=== PATIENT | female | born 1955 | race Caucasian/White ===

== ENCOUNTER → 2018-05-02 | Outpatient (CLI) | payer OTHER ==
--- NOTE | 2018-05-06 08:06 | MM ---
Reason for exam: screening (asymptomatic). Last mammogram was performed 2 years and 1 month ago. History: Patient is postmenopausal. Benign left mammotome panel of the left breast, December 01, 2008. Benign stereotactic core biopsy of the left breast, July 16, 2003. Benign stereotactic core biopsy of the right breast, July 16, 2003. Benign stereotactic core biopsy of the right breast, July 16, 2003. Benign core biopsy of the left breast. 3 benign core biopsies of the right breast. Took hormonal contraceptives for 3 years beginning at age 19. Took estrogen for 2 years beginning at age 39. Physical Findings: A clinical breast exam by your physician is recommended on an annual basis and results should be correlated with mammographic findings. MG Screening Mammo w CAD Bilateral CC and MLO view(s) were taken. Prior study comparison: April 16, 2016, bilateral MG screening mammo w CAD. August 24, 2014, bilateral MG screening mammo w CAD. July 09, 2013, bilateral digital screening mammo w/CAD. There are scattered fibroglandular densities. Previous mammotome biopsy in the right breast x 2 and left breast x 2. There is chronic nodularity in the right breast. Focal asymmetry left breast, stable. Benign secretory calcifications on both sides. No significant changes when compared with prior studies. ASSESSMENT: Benign, BI-RAD 2 RECOMMENDATION: Routine screening mammogram of both breasts in 1 year.
== END | disposition home or self-care (01) ==
LOC: RADMAMWWP 10:45
PROVIDERS: ATTEND Family Medicine
DX: Z12.31 Encounter for screening mammogram for malignant neoplasm of breast (principal); Z68.36 Body mass index [BMI] 36.0-36.9, adult
CPT/HCPCS: 77067

== ENCOUNTER → 2020-07-13 | Outpatient (CLI) | payer MEDICARE, BC ==
[2020-07-14 02:08] LABS: Protein, Total 7.3 g/dL (6.2-8.2)
[2020-07-14 02:21] LABS: T4, Free (Free Thyroxine) 1.2 ng/dL (0.80-1.80)
== END | disposition home or self-care (01) ==
LOC: LABWHC1 14:42
PROVIDERS: ATTEND Psychiatry & Neurology Neurology
DX: G62.9 Polyneuropathy, unspecified (principal); R53.1 Weakness; R27.0 Ataxia, unspecified; M13.80 Other specified arthritis, unspecified site; M79.10 Myalgia, unspecified site
CPT/HCPCS: 36415; 82306; 82550; 82607; 82747; 84165; 84207; 84439; 84443; 85652; 86038; 86334; 86431; 86618

== ENCOUNTER 2020-07-29 07:19 | Day surgery (SDC) | payer MEDICARE, BC ==
[2020-07-21 13:57] VITALS: BMI 30.4
--- NOTE | 2020-07-28 14:57 | P.HPOB ---
History of Present Illness H&P Date: 07/28/20 Chief Complaint: Postmenopausal bleeding, endometrial thickening This is a 65 y.o. female, 1, para 1, who presents for dilatation and curettage with hysteroscopy due to postmenopausal bleeding. She had 1 day of spotting about a month ago. She also had some pelvic pain at the same time. Ultrasound showed uterus measuring 8.4 x 4 x 4.5 cm with endometrial thickness of 1.2 cm. OB Hx: . History of 1 vaginal delivery. Mother Baby Rn Hx: Not currently sexually active. No history of STDs. Menopause age 38. Social Hx: . Retired. Review of Systems Constitutional: Denies chills, Denies fever Eyes: denies blurred vision, denies pain Ears, nose, mouth and throat: Denies headache, Denies sore throat Cardiovascular: Denies chest pain, Denies shortness of breath Respiratory: Denies cough Gastrointestinal: Denies abdominal pain, Denies diarrhea, Denies nausea, Denies vomiting Genitourinary: Reports abnormal vaginal bleeding, Reports pelvic pain Menstruation: Reports postmenopausal Musculoskeletal: Reports myalgias Integumentary: Denies pruritus, Denies rash Neurological: Denies numbness, Denies weakness Past Medical History Past Medical History: Asthma, Diabetes Mellitus, Hypertension History of Any Multi-Drug Resistant Organisms: None Reported Past Surgical History: Orthopedic Surgery, Tonsillectomy Additional Past Surgical History / Comment(s): LEFT CARPAL TUNNEL RELEASE , RIGHT CARPAL TUNNEL RELEASE X2 , Past Anesthesia/Blood Transfusion Reactions: Motion Sickness Past Psychological History: Depression Smoking Status: Never smoker Past Alcohol Use History: Rare Past Drug Use History: None Reported - Past Family History Father Family Medical History: Cancer Additional Family Medical History / Comment(s): COLON CANCER Medications and Allergies Home Medications Medication Instructions Recorded Confirmed Type Albuterol Sulfate [Ventolin HFA] 1 - 2 puff INHALATION Q6H PRN 07/21/20 07/21/20 History Cholecalciferol [Vitamin D3 (25 5,000 unit PO DAILY 07/21/20 07/21/20 History Mcg = 1000 Iu)] DULoxetine HCL [Cymbalta] 30 mg PO HS 07/21/20 07/21/20 History Echinacea 850 mg PO DAILY PRN 07/21/20 07/21/20 History Fluticasone Nasal [place] [Flonase 1 - 2 spray EA NOSTRIL DAILY 07/21/20 07/21/20 History Nasal [place]] Glucos Sul 2Kcl/MSM/Chond/C/Mn 1 each PO DAILY 07/21/20 07/21/20 History [Glucosamine Chondroitin Cap] Ibuprofen [Motrin] 800 mg PO Q8H PRN 07/21/20 07/21/20 History Krill Oil 500 mg PO DAILY 07/21/20 07/21/20 History Losartan [Cozaar] 50 mg PO DAILY 07/21/20 07/21/20 History Montelukast Sodium [Singulair] 10 mg PO HS 07/21/20 07/21/20 History Naltrexone 3mg 3 mg PO DAILY 07/21/20 History Dodson-3 Fatty Acids [Dodson-3] 1,000 mg PO DAILY 07/21/20 07/21/20 History Propylene Glycol/Peg 400/Pf 1 dropper BOTH EYES BID PRN 07/21/20 07/21/20 History [Systane 0.3-0.4% Eye Drops] Sodium Chloride 5% Ophth Oint 1 applic BOTH EYES DAILY PRN 07/21/20 07/21/20 History [Harry 128] Turmeric Root Extract [Turmeric] 500 mg PO DAILY 07/21/20 07/21/20 History metFORMIN HCL [Glucophage] 500 mg PO BID 07/21/20 07/21/20 History traZODone HCL [Desyrel] 50 mg PO HS 07/21/20 07/21/20 History Allergies Allergy/AdvReac Type Severity Reaction Status Date / Time Ttsouhz-Bbd-Mgl Reductase Allergy SEVERE Verified 07/29/20 07:48 Inhibitor JOINT PAIN Exam Osteopathic Statement: *. No significant issues noted on an osteopathic structural exam other than those noted in the History and Physical/Consult. Gen: well developed, well nourished female in no acute distress HEENT: within normal limits. Heart: regular rate and rhythm Lungs: clear to auscultation bilaterally Abdomen: soft, non-tender Pelvic: deferred to OR Extremities: Neg. Katja's Assessment and Plan (1) Postmenopausal bleeding Current Visit: No Status: Acute Code(s): N95.0 - POSTMENOPAUSAL BLEEDING SNOMED Code(s): 73739270 (2) Endometrial thickening on ultrasound Current Visit: No Status: Acute Code(s): R93.89 - ABNORMAL FINDINGS ON DX IMAGING OF OTH BODY STRUCTURES SNOMED Code(s): 536061745 Plan: Proceed with dilatation and curettage with hysteroscopy. Medical clearance obtained from Dr. Joseluis Bell. I have discussed the risks, benefits, and alternative therapies for the above- mentioned procedure and for both sedation/anesthesia as well as necessary blood products administration, if indicated, as they pertain to this patient. The patient has indicated her understanding and acceptance of the risks and procedures discussed.
[~2020-07-29 07:19] MED LIST: DEXAMETHASONE SOD PHOSPHATE 10 MG/ML 1 ML VIAL IV ONE; HYDROmorphone 0.5 MG/0.5 ML SYRINGE IVP PRN; LACTATED RINGERS 1,000 ML IV SCH; LIDOCAINE 1% (10MG/ML) FOR IV START INTRADERMA PRN; ONDANSETRON 4 MG/2 ML VIAL IVP ONE; Pre Op ABX Message 1 EACH MISC MISCELLANE ONE; SCOPOLAMINE 1.5MG/72HR PATCH TRANSDERM ONE
[2020-07-29 08:02] LABS: Glucose,Whole Blood 126 mg/dL (75-99)
[2020-07-29] MEDS ORDERED: SUCCINYLCHOLINE CHLORIDE 100 MG/5 ML SYR IV ONE (08:20)
[2020-07-29] MEDS ORDERED: MIDAZOLAM 2 MG/2 ML VIAL ONE (08:20)
[2020-07-29] MEDS ORDERED: LIDOCAINE 1% INJ 10MG/ML (20 ML MDV) ONE (08:20)
[2020-07-29] MEDS ORDERED: KETOROLAC 15 MG/ML 1 ML VIAL ONE (08:20)
[2020-07-29] MEDS ORDERED: fentaNYL (PF) 50 MCG/ML 2 ML AMP ONE (08:20)
[2020-07-29] MEDS ORDERED: PROPOFOL 10 MG/ML 20 ML VIAL IV ONE (08:20)
--- NOTE | 2020-07-29 08:52 | P.OP ---
Date of Procedure: 07/29/20 Preoperative Diagnosis: Postmenopausal bleeding Endometrial thickening Postoperative Diagnosis: Same Procedure(s) Performed: Dilation and curettage with hysteroscopy Anesthesia: ADRIANA Surgeon: Latisha Fishman Estimated Blood Loss (ml): 5 Pathology: other (Endometrial curettings) Condition: stable Disposition: same day Indications for Procedure: This is a 65 y.o. female, 1, para 1, who presents for dilatation and curettage with hysteroscopy due to postmenopausal bleeding. She had 1 day of spotting about a month ago. She also had some pelvic pain at the same time. Ultrasound showed uterus measuring 8.4 x 4 x 4.5 cm with endometrial thickness of 1.2 cm. Operative Findings: Uterus is mid position, sounded to 9 cm. Upon hysteroscopy a large endometrial polyp is noted. Background endometrium appears very atrophic. Both tubal ostia are visualized. Of note she did have a grade 3 rectocele, grade 2 cystocele, and grade 2 uterine prolapse. There was also a small vaginal skin tag on the anterior vaginal wall. Description of Procedure: The patient is taken to the operating room she is placed in the dorsal lithotomy position. She is prepped and draped in the normal sterile fashion. Her bladder is drained with a catheter and then removed. Examination is performed under anesthesia. The above noted findings are made. Uterus is palpated and a mid position slightly enlarged, with no adnexal masses palpated. Next a weighted speculum was placed in the patient's vagina and a right angle retractor was used to visualize the cervix. The anterior lip of the cervix is grasped with a single-tooth tenaculum. Uterus is sounded to 9 cm. The cervix is then gently dilated with Park dilators. A stress The is performed using normal saline. The above noted findings are made and pictures are taken. Next the cervix is gently dilated further and a polyp forceps was introduced. A very large endometrial polyp approximately 4-5 cm long is removed. Next a medium-size sharp curet was introduced and sharp curettage was performed until a gritty texture was noted. Minimal further tissue was obtained. Next the single-tooth tenaculum is removed. No bleeding is noted. All instruments are removed from the vagina. All sponge counts are correct. The patient is then taken to recovery room in stable condition.
[2020-07-29 09:14] VITALS: TEMP 97.7
[2020-07-29 10:13] VITALS: PULSE 73; RESP 16
[2020-07-29 11:07] VITALS: BP 172/72
== END 2020-07-29 11:35 | disposition home or self-care (01) ==
LOC: OR 07:19
PROVIDERS: ATTEND Obstetrics & Gynecology
DX: N84.0 Polyp of corpus uteri (principal); N81.2 Incomplete uterovaginal prolapse; L91.8 Other hypertrophic disorders of the skin; N95.0 Postmenopausal bleeding; R93.89 Abnormal findings on diagnostic imaging of other specified body structures; E11.9 Type 2 diabetes mellitus without complications; J45.909 Unspecified asthma, uncomplicated; I10 Essential (primary) hypertension; F32.9 Major depressive disorder, single episode, unspecified; Z88.8 Allergy status to other drugs, medicaments and biological substances; Z98.890 Other specified postprocedural states; Z90.89 Acquired absence of other organs; Z86.69 Personal history of other diseases of the nervous system and sense organs; Z87.898 Personal history of other specified conditions; Z79.899 Other long term (current) drug therapy; Z79.84 Long term (current) use of oral hypoglycemic drugs; Z80.0 Family history of malignant neoplasm of digestive organs
CPT/HCPCS: 88305; 58558; J2250; J2001; J3010; J1885; J0330; J2704

== ENCOUNTER → 2020-08-06 | Outpatient (CLI) | payer MEDICARE, BC ==
--- NOTE | 2020-08-06 12:02 | MR ---
"EXAMINATION TYPE: MR cervical spine wo con DATE OF EXAM: 08/06/2020 COMPARISON: None HISTORY: Pain, Numbness TECHNIQUE: Multiplanar, multisequence images of the cervical spine were acquired. C2-C3: Disc desiccation and left paracentral disc bulging. Mild effacement of thecal sac. There is fa cet arthropathy. Mild left-sided foraminal encroachment. No Canal stenosis. C3-C4: Central disc herniation causing severe canal stenosis and spinal cord compression. Facet arthr opathy and uncovertebral joint hypertrophy contribute to severe bilateral foraminal encroachment. Sug gestion of abnormal signal in the spinal cord suggestive of compressive myelitis. Anterolisthesis of C3 relative to C4 approximately 3 mm. Report called to referring clinician. C4-C5: Severe degenerative disc disease and facet arthropathy greater on the left. Bilateral uncovert ebral joint hypertrophy greater on the left moderate right and severe left foraminal encroachment. Di sc bulging capped by spur results in moderate compression thecal sac. Mild canal stenosis. C5-C6: Severe degenerative disc disease with facet arthropathy and diffuse disc bulging. Moderate com pression of the thecal sac. Moderate to severe left foraminal encroachment and moderate right foramin al encroachment. Mild canal stenosis. C6-C7: Severe degenerative disc disease with broad-based disc herniation. Encroaches upon the anterio r margin the spinal cord. Moderate to severe bilateral foraminal encroachment with posterior spondylo sis and uncovertebral joint hypertrophy. C7-T1: Degenerative disc disease but no canal stenosis. No foraminal encroachment. Craniocervical junction maintained. As noted above there is abnormal signal at C3-4 within the spinal cord is suggestive of compressive myelitis. Additionally there appears to be a rounded mass posterio r to the upper margin of the odontoid measuring 6 mm. IMPRESSION: 1. Severe spinal cord compression due to central disc herniation at C3-C4 with severe bilateral moiz inal encroachment. Abnormal signal in the spinal cord likely related to compressive myelitis. 2. Multilevel degenerative disc disease with multiple additional areas of disc protrusion, hypertroph ic change and evidence of canal stenosis area 3. There is a 6 mm mass just posterior to the upper margin the odontoid possibly extradural and possi simone related to a small meningioma. Recommend MRI of the brain for further assessment. A [place] level critical message alert has been initiated for Jaden Morejon DO via the [employer] 0 | Critical Results System on 08/06/2020 11:57 AM. This message alert has been sent to Jaden andrade DO via the preferences provided by the clinician for the receipt of Radiology Critical Findings. Teresita essage ID [id number]."
== END | disposition home or self-care (01) ==
LOC: RADMRIMAIN 11:13
PROVIDERS: ATTEND Psychiatry & Neurology Neurology
DX: M48.02 Spinal stenosis, cervical region (principal); M50.21 Other cervical disc displacement, high cervical region; M50.30 Other cervical disc degeneration, unspecified cervical region
CPT/HCPCS: 72141

== ENCOUNTER → 2020-08-15 | Outpatient (CLI) | payer MEDICARE, BC ==
[2020-08-15 14:28] LABS: Basophils # (A) 0.1 k/uL (0-0.2); Basophils % (A) 1 %; Eosinophils # (A) 0.2 k/uL (0-0.7); Eosinophils % (A) 2 %; HCT 41.3 % (34.0-46.0); HGB 13.6 gm/dL (11.4-16.0); Lymphocytes # (A) 3.5 k/uL (1.0-4.8); Lymphocytes % (A) 33 %; MCH 30.5 pg (25.0-35.0); MCV 92.3 fL (80.0-100.0); Mean Platelet Volume 7.1; Monocytes # (A) 0.7 k/uL (0-1.0); Monocytes % (A) 7 %; Neutrophils % (A) 56 %; Platelet Count 253 k/uL (150-450); RBC 4.47 m/uL (3.80-5.40); RDW 12.6 % (11.5-15.5); WBC 10.7 k/uL (3.8-10.6)
[2020-08-15 14:32] LABS: Appearance,Urine Clear (Clear); Bacteria,Urine Rare /hpf; Bilirubin,Urine Negative (Negative); Blood,Urine Negative (Negative); Color,Urine Yellow; Glucose,Urine (UA) Negative (Negative); Ketones,Urine Negative (Negative); Leukocyte Esterase,Urine Large (Negative); Mucus,Urine Few /hpf; Nitrite,Urine Negative (Negative); Protein,Urine Negative (Negative); Squamous Epithelial Cell,Urine 1 /hpf (0-4); Urobilinogen,Urine <2.0 mg/dL (<2.0); WBC,Urine 9 /hpf (0-5)
[2020-08-15 14:33] LABS: Partial Thromboplastin Time 26.4 sec (22.0-30.0); Prothrombin Time 10.4 sec (9.0-12.0)
[2020-08-15 14:44] LABS: African American GFR (CKD) >90 (>60 ml/min/1.73 sqM); Anion Gap 8 mmol/L; Blood Urea Nitrogen 20 mg/dL (7-17); Calcium 10.1 mg/dL (8.4-10.2); Carbon Dioxide 29 mmol/L (22-30); Chloride 102 mmol/L (98-107); Glucose 104 mg/dL (74-99); Non-African American GFR(CKD) 89 (>60 ml/min/1.73 sqM); Potassium 3.7 mmol/L (3.5-5.1); Sodium 139 mmol/L (137-145)
--- NOTE | 2020-08-15 16:24 | XR ---
EXAMINATION TYPE: XR chest 2V DATE OF EXAM: 08/15/2020 COMPARISON: NONE HISTORY: Asthma. TECHNIQUE: Frontal and lateral views of the chest are obtained. FINDINGS: There is some underlying mild chronic parenchymal changes are present without suspicious f ocal air space opacity, pleural effusion, or pneumothorax seen. The cardiac silhouette size is upper limits of normal with atherosclerotic change aortic knob. Multilevel spurring thoracic spine. IMPRESSION: No acute cardiopulmonary process.
== END | disposition home or self-care (01) ==
LOC: LABPAT 12:21
PROVIDERS: ATTEND Orthopaedic Surgery Orthopaedic Surgery of the Spine
DX: Z01.818 Encounter for other preprocedural examination (principal); G95.9 Disease of spinal cord, unspecified
CPT/HCPCS: 36415; 71046; 80048; 81001; 85025; 85610; 85730

== ENCOUNTER → 2020-08-15 | Outpatient (CLI) | payer MEDICARE, BC ==
--- NOTE | 2020-08-16 06:31 | MR ---
EXAMINATION TYPE: MR brain wo/w con DATE OF EXAM: 08/15/2020 COMPARISON: MRI cervical spine August 06, 2020 HISTORY: Bilateral extremity weakness and numbness. TECHNIQUE: Multiplanar, multisequence images of the brain and brainstem is performed without and with IV contras t, utilizing 10 mL intravenous Gadavist . FINDINGS: Diffusion weighted images demonstrate no evidence of a recent infarct or other diffusion ab normality. There is no worrisome extra-axial fluid collection. There is mild ventricular and sulcal prominence. Tiny cavum septum pellucidum. Occasional small focus of T2 hyperintensity is seen through out the white matter bilaterally. Less than 5 scattered lesions are seen. Midline structures demonstrate normal morphology. There is severe cord compression at C3-C4 level red emonstrated sagittal image 12 series 201. Post contrast images demonstrate homogeneous enhancement o f the right anterior extra-axial lesion measuring roughly 8 x 5 mm seen best sagittal image 85 series 601 with dural extension consistent with small meningioma. Mild indentation of adjacent spinal cord without abnormal signal noted. No additional areas of suspicious postcontrast enhancement. The dural venous sinuses appear patent. The visualized sinuses are clear and the globes are intact. IMPRESSION: 1. Confirmation of 8 mm extra medullary right anterior mass with homogeneous enhancement consistent w ith meningioma at the level of the top of the dens. Local mass effect is present. 2. Background Mild diffuse cerebral atrophy and chronic small vessel ischemic change. 3. Redemonstration of known significant spinal cord stenosis C3-C4 level. Neurosurgical consultation is advised for findings 1 and 3. 3 being more severe.
== END | disposition home or self-care (01) ==
LOC: RADMRIMAIN 14:05
PROVIDERS: ATTEND Psychiatry & Neurology Neurology
DX: G31.9 Degenerative disease of nervous system, unspecified (principal); I67.82 Cerebral ischemia; G93.89 Other specified disorders of brain; D32.0 Benign neoplasm of cerebral meninges
CPT/HCPCS: 70553; A9585

== ENCOUNTER 2020-08-24 15:08 | Day surgery (SDC) | payer MEDICARE, BC ==
[2020-08-19 16:28] VITALS: BMI 30.4
[~2020-08-24 15:08] MED LIST changes: -LACTATED RINGERS 1,000 ML IV SCH; -LIDOCAINE 1% (10MG/ML) FOR IV START INTRADERMA PRN; -Pre Op ABX Message 1 EACH MISC MISCELLANE ONE; -SCOPOLAMINE 1.5MG/72HR PATCH TRANSDERM ONE; +ceFAZolin 1,000 MG in SODIUM CHLORIDE 0.9% IRRIGATIO 1,000 ML IRRIGATION ONE
[2020-08-24 15:46] LABS: Glucose,Whole Blood 90 mg/dL (75-99)
[2020-08-24] MEDS: LACTATED RINGERS 1,000 ML IV SCH (16:00)
[2020-08-24] MEDS ORDERED: LIDOCAINE 1% (10MG/ML) FOR IV START INTRADERMA ONE (16:00)
[2020-08-24] MEDS ORDERED: WATER FOR INJECTION, STERILE 10 ML VIAL IV ONE (16:45)
[2020-08-24] MEDS ORDERED: fentaNYL (PF) 50 MCG/ML 2 ML AMP ONE (16:45)
[2020-08-24] MEDS ORDERED: PROPOFOL 10 MG/ML 20 ML VIAL IV ONE (16:45)
[2020-08-24] MEDS ORDERED: DEXAMETHASONE SOD PHOSPHATE 10 MG/ML 1 ML VIAL ONE (16:45)
[2020-08-24] MEDS ORDERED: LIDOCAINE 1% INJ 10MG/ML (20 ML MDV) ONE (16:45)
[2020-08-24] MEDS ORDERED: SUCCINYLCHOLINE CHLORIDE 100 MG/5 ML SYR IV ONE (16:45)
[2020-08-24] MEDS ORDERED: MIDAZOLAM 2 MG/2 ML VIAL ONE (16:45)
[2020-08-24] MEDS ORDERED: ePHEDrine SULFATE/0.9% NACL/PF 50 MG/5 ML SYRINGE IV ONE (16:45)
[2020-08-24] MEDS ORDERED: BUPIVACAINE (PF) 0.5% 30 ML VIAL SQ ONE (17:23)
[2020-08-24] MEDS ORDERED: LIDOCAINE 2%-EPI 1:100,000 20 ML VIAL SQ ONE (17:23)
[2020-08-24] MEDS ORDERED: THROMBIN (BOVINE) 5,000 UNIT VIAL TOPICAL ONE (17:23)
[2020-08-24] MEDS ORDERED: GELATIN SPONGE,ABSORB (LARGE) 1 EACH SPONGE MISCELLANE ONE (17:23)
[2020-08-24] MEDS: HYDROmorphone 0.5 MG/0.5 ML SYRINGE IVP PRN ×2 (17:45→21:29)
--- NOTE | 2020-08-24 18:00 | XR ---
EXAMINATION TYPE: XR cervical spine 1V DATE OF EXAM: 08/24/2020 COMPARISON: None HISTORY: Needle placement TECHNIQUE: Lateral cervical spine is obtained. FINDINGS: There is a metallic needle directed to the C4-C5 disc space. Large anterior vertebral body spurring is present C5-6. Patient is intubated. IMPRESSION: 1. Needle directed to the C4-C5 disc space lateral projection
[2020-08-24] MEDS ORDERED: LACTATED RINGERS 1,000 ML IV ONE (18:52)
[2020-08-24] MEDS ORDERED: ONDANSETRON 4 MG/2 ML VIAL IVP PRN (19:12)
[2020-08-24] MEDS ORDERED: BENZOCAINE/MENTHOL LOZENG 1 EACH LOZENGE MUCOUS MEM PRN (19:12)
[2020-08-24] MEDS ORDERED: ACETAMINOPHEN TAB 325 MG TAB PO PRN (19:12)
[2020-08-24] MEDS ORDERED: ECHINACEA 500 MG PO PRN (19:13)
[2020-08-24] MEDS ORDERED: SODIUM CHLORIDE 5% OPHTH OINT 3.5 GM TUBE BOTH EYES PRN (19:13)
[2020-08-24] MEDS ORDERED: FLUTICASONE 50MCG/SPRAY NASAL 16GM EA NOSTRIL PRN (19:13)
[2020-08-24] MEDS ORDERED: ARTIFICIAL TEARS-HYPROMELLOSE DROPS 15 ML BTL BOTH EYES PRN (19:13)
[2020-08-24] MEDS ORDERED: ALBUTEROL NEBULIZED 2.5 MG/3 ML INHALATION PRN (19:13)
--- NOTE | 2020-08-24 19:13 | XR ---
EXAMINATION TYPE: XR cervical spine 1V DATE OF EXAM: 08/24/2020 COMPARISON: Intraoperative crosstable lateral HISTORY: Anterior cervical fusion TECHNIQUE: Crosstable lateral FINDINGS: There is an anterior cervical fusion of C3-C7. Disc spacers have been utilized. Patient is intubated. IMPRESSION: 1. Status post anterior cervical fusion
--- NOTE | 2020-08-24 19:23 | P.OP ---
Date of Procedure: 08/24/20 Preoperative Diagnosis: Cervical myelopathy, bilateral upper extremity weakness, bilateral lower extremity weakness, myelomalacia, severe cervical stenosis C3 4, disc herniation with herniated disc and stenosis C5 6 C6 7, disc protrusion C4 5, degenerative disc disease, large osteophyte C4 through C7 Postoperative Diagnosis: Same with findings of auto fusion at C4 5 Anesthesia: GETA Pathology: none sent Condition: stable Disposition: PACU Description of Procedure: BRIEF OPERATIVE NOTE Preoperative Diagnosis:Cervical myelopathy, bilateral upper extremity weakness, bilateral lower extremity weakness, myelomalacia, severe cervical stenosis C3 4, disc herniation with herniated disc and stenosis C5 6 C6 7, disc protrusion C4 5, degenerative disc disease, large osteophyte C4 through C7 Postoperative Diagnosis:Cervical myelopathy, bilateral upper extremity weakness, bilateral lower extremity weakness, myelomalacia, severe cervical stenosis C3 4, disc herniation with herniated disc and stenosis C5 6 C6 7, disc protrusion C4 5, degenerative disc disease, large osteophyte C4 through C7, with findings of autofusion at C4 5 Procedure: Anterior cervical decompression with discectomy and fusion C3 4 C5 6 and C6 7 Placement of interbody graft C3 4 C5 6 C6 7 Application of anterior cervical plate C3 4 5 6 and 7 Removal of large osteophytes from C4 to C7 Surgeon: Dr. Ortiz Integration Analyst: Ben Hartman is present throughout the entire the case persistence during positioning, dissection, exposure, visualization, and all crucial elements of the case as well as closure. Anesthesia: General anesthesia Estimated blood loss: Approximately 100 mL Complications: None apparent Components implanted: K2M Sedgwick anterior cervical plate system with a 4 level plate and screws with Vikos interbody allograft bone graft and 1 mL of DBX bone putty Disposition: To recovery room in good stable condition. OPERATIVE INDICATIONS The patient has had long-standing issues in their neck and upper extremities. Patient was having significant changes at her upper extremities and her function. She was having weakness at her upper extremities and changes in her gait with multiple falls. She is having debility hands and fingers decreased ability to retain activities. She is having more difficulty with her balance as well. She had been seen by neurology and was sent to our office regards to cervical myelopathy. When we saw the patient she was found have severe evidence of myelopathy with myelomalacia and severe cervical stenosis at multiple levels at her cervical spine. The patient has been through conservative treatment. I felt that she would likely significant worsening if she were to continue conservative care or any other management. I felt that surgery would offer the best chance for stopping the progression of her disease and the rare chance to improve her function overall. We discussed the possibility that she has likely lost significant function already and there are some permanent changes with her neurologic function. We discussed various treatment options including surgery, and the patient wishes to proceed with surgery We discussed the risk, patient's alternatives and benefits of surgery including but not limited to, risk of bleeding risk of infection, risk of need for further surgery, risk of decreased, loss of motion, muscle function, malunion nonunion, hardware failure, nerve damage, paralysis, heart attack, and . OPERATIVE SUMMARY After discussing all the risks, patient alternatives and benefits at length, the patient elected to proceed with surgical intervention, signed informed consent, and presented for their procedure. The patient was seen and examined in the preoperative holding area and the surgical site was marked. The patient was given antibiotics and brought to the operating room. The patient was positioned on the operating room table in a supine position being careful to pad any bony prominences and pressure points. The patient was sedated and intubated by anesthesia in standard fashion. Once the airway and C- spine were stabilized the patient's arms were padded and tucked at her side, with her shoulders gently taped. The head was placed in a donut pad with the neck in good neutral alignment and position. We were careful to maintain the patient's cervical spine and good neutral alignment and position throughout. The patient was prepped and draped in a normal standard fashion. An appropriate timeout and keystone protocol performed. We were able to proceed with the surgery. The local wound area was infiltrated with local anesthetic. An incision was made transversely approximately 2-1/2 cm over the appropriate levels longitudinally to the right side from C3 to C7. Dissection was taken down subcutaneously to the level of the platysma which was split in line with its fibers. Dissection was taken with a carotid approach, with the trachea and esophagus medial and the carotid sheath laterally. We dissected down to the anterior surface of the vertebral bodies. Intraoperative x-ray was taken which showed a marker at the appropriate level at C4 5. Note was made of massive anterior cervical osteophytes from C4 to C7. Note was also made of the fact that there is very little if any disc space left at C4 5 even for placement of the needle. With the appropriate level positively confirmed, we were able to proceed with discectomy at the appropriate levels. All of the operative levels were exposed appropriately. I started at C3 4 and then remove caudal sequentially down to C6 7. The patient had all their twitches back, and there was no evidence of recurrent laryngeal issue. The wound was copiously irrigated and suctioned dry as had been done periodically throughout the case. At the appropriate level/levels, I established an annulotomy with an 11 blade scalpel. A discectomy was performed with a combination of pituitary rongeurs, curettes, a high-speed bur, and Kerrison rongeurs. The posterior longitudinal ligament was taken down as were any posterior osteophytes. There was severe evidence of stenosis at C3 4 with large disc herniation which was able to be removed and decompression was achieved centrally in the bilateral neural foramen. This gave good central and bilateral foraminal decompression. There is no evidence of any dural tear or leak. The endplates were prepared with a high-speed bur. With the endplates in good parallel position, I was able to size for the appropriate size interbody graft. The wound was irrigated and suctioned dry the graft was prepared and malleted into position. It had good alignment and position with the anterior surface flush with the anterior surface of the vertebral bodies. After C3 4 I turned my attention to C4 5. I removed the osteophytes anteriorly and tried to find if any motion at that level. I'm a number of attempts to try to isolate the C4 5 level to see if there is any motion at the disc space. I was not able to find any evidence of motion at C4 5 and ending the level explored and fused. I reviewed the MRI and there was some disc protrusion and effacement anterior thecal sac I felt it was okay to leave that intact even the severity of the other levels I did not feel the need to take down the autofusion at C4 5 in order to provide further decompression at that level as I felt that the risk of taking down the autofusion may be greater than the report of the decompression at her most mild level. I decided to move on to C 56 level and then C6 7 level. I did take down large osteophytes further and discectomy was then performed similar to stated above at C3 4. With the grafts intact, I was able to measure and contour and appropriate sized plate. The plate was positioned at the midline over the appropriate levels from C3 to C7. Screw holes were established with a hand drill and drill guide. Screws were placed in good alignment and position with excellent bony purchase. They were seated under the locking device. The construct was checked and found to be stable. Intraoperative x-ray was taken which showed good alignment and position of the implants at the appropriate levels from C3 to C7. There was no evidence of any dural tear or leak. Good hemostasis was maintained. The wound was copiously irrigated and suctioned dry as had been done periodically throughout the case. The platysma was closed with absorbable suture. The subcutaneous tissue was closed. The subcuticular tissue was closed with absorbable suture. The wound was cleaned and dried and dressed appropriately. A soft cervical collar was placed appropriately. The patient was woken up by anesthesia, extubated, transferred back gently to their hospital bed and brought to the recovery room in good stable condition. The patient will be admitted to the hospital for appropriate postoperative care, medical management and monitoring. We will continue to follow them closely about the postoperative course.
[2020-08-24 19:55] LABS: Glucose,Whole Blood 119 mg/dL (75-99)
[2020-08-24] MEDS ORDERED: DULoxetine HCL 30 MG CAPSULE.DR PO SCH (21:00)
[2020-08-24] MEDS ORDERED: MONTELUKAST 10 MG TAB PO SCH (21:00)
[2020-08-24] MEDS: SODIUM CHLORIDE 0.9% 1,000 ML IV SCH (21:32)
[2020-08-24] MEDS: FAMOTIDINE 20 MG TAB PO SCH (21:32)
[2020-08-24] MEDS: NITROFURANTOIN MONOHYD/M-CRYST 100 MG CAP PO SCH (21:32)
[2020-08-24 21:41] LABS: Glucose,Whole Blood 118 mg/dL (75-99)
[2020-08-24] MEDS: metFORMIN 500 MG TAB PO SCH (21:41)
[2020-08-25] MEDS: HYDROcodone/APAP 5-325MG 1 EACH TAB PO PRN ×3 (00:21→14:01)
[2020-08-25 01:58] VITALS: RESP 17
[2020-08-25 03:12] VITALS: PULSE 93
[2020-08-25] MEDS: LACTATED RINGERS 1,000 ML IV SCH (05:33)
[2020-08-25 06:43] LABS: Glucose,Whole Blood 141 mg/dL (75-99)
[2020-08-25] MEDS: FAMOTIDINE 20 MG TAB PO SCH (08:17)
[2020-08-25] MEDS: SODIUM CHLORIDE 0.9% 1,000 ML IV SCH (08:17)
[2020-08-25] MEDS: metFORMIN 500 MG TAB PO SCH (08:18)
[2020-08-25] MEDS: NITROFURANTOIN MONOHYD/M-CRYST 100 MG CAP PO SCH (08:18)
--- NOTE | 2020-08-25 08:25 | P.DS ---
Providers Date of admission: 08/24/2020 Attending physician: Ana Maria Ortiz Primary care physician: [facility] Course: The patient presented on the day of admission as per their operative note. She has severe cervical myelopathy with severe cervical stenosis and upper and lower extremity weakness. She underwent her anterior cervical decompression and discectomy yesterday as per her operative note from C3 to C7. She says today that she is doing much better. She feels her arms are having significant improvement already and she is walking better. She has been able to tolerate soft diet. She is voiding freely. Physical Exam The incision site is clean dry and intact. There is no erythema no drainage. There is no purulence no evidence of infection. Her neck is soft and supple Abdomen soft and nontender. Chest has good excursion with deep inspiration and expiration. The patient has active and passive range of motion intact at the upper and lower extremities. There is no acute change in neurologic status. She does seem to move her hand slightly better but she still has significant weakness in her bilateral hands Hospital Course Postoperative day #1 status post anterior cervical decompression with discectomy and fusion C3 4 C5 6 and C6 7 with fusion for her severe cervical myelopathy and cervical stenosis with upper and lower extremity weakness The patient has been making good progress postoperatively. They have completed the prophylactic antibiotics without any signs or symptoms of infection. The patient has been able to advance their diet, and is tolerating diet adequately. The pain was initially controlled with IV medications and is now controlled appropriately with oral medications. The patient has been able to increase their mobilization. The patient has progressed appropriately. I think they are in good stable condition for discharge today. They will be sent home with appropriate prescriptions. I answered their questions to the best of my ability in a language that they can understand and they are agreeable with the plan. They will follow up as directed in approximately 2 weeks or sooner if she is having problems. Patient Condition at Discharge: Fair Plan - Discharge Summary Discharge Rx Participant: No New Discharge Prescriptions: New HYDROcodone/APAP 5-325MG [Jansen 5] 1 each PO Q6HR PRN #28 tab PRN Reason: Pain No Action Sodium Chloride 5% Ophth Oint [Harry 128] 1 applic BOTH EYES DAILY PRN PRN Reason: Pain Propylene Glycol/Peg 400/Pf [Systane 0.3-0.4% Eye Drops] 1 dropper BOTH EYES BID PRN PRN Reason: ALLERGY SYMPTOMS,DRY EYES [place]-3 Fatty Acids [[place]-3] 1,000 mg PO DAILY Krill Oil 500 mg PO DAILY Turmeric Root Extract [Turmeric] 500 mg PO DAILY Glucos Sul 2Kcl/MSM/Chond/C/Mn [Glucosamine Chondroitin Cap] 1 each PO DAILY Cholecalciferol [Vitamin D3 (25 Mcg = 1000 Iu)] 5,000 unit PO DAILY Albuterol Sulfate [Ventolin HFA] 1 - 2 puff INHALATION Q6H PRN PRN Reason: Shortness Of Breath Fluticasone Nasal [place] [Flonase Nasal [place]] 2 spray EA NOSTRIL DAILY PRN PRN Reason: allergy sx traZODone HCL [Desyrel] 50 mg PO HS Ibuprofen [Motrin] 800 mg PO Q8H PRN PRN Reason: Pain Montelukast Sodium [Singulair] 10 mg PO HS Losartan [Cozaar] 50 mg PO DAILY DULoxetine HCL [Cymbalta] 30 mg PO HS metFORMIN HCL [Glucophage] 500 mg PO BID Naltrexone 3mg 3 mg PO DAILY Echinacea 850 mg PO DAILY PRN PRN Reason: COLD SYMPTOMS Acetaminophen [Tylenol Extra Strength] 1,000 mg PO DIRECTED PRN PRN Reason: Pain Famotidine [Pepcid] 20 mg PO BID Nitrofurantoin Macrocrystal [Macrodantin] 100 mg PO BID predniSONE 10 mg PO DAILY Cbd Tablets 15 mg PO HS PRN PRN Reason: Pain Discharge Medication List Albuterol Sulfate [Ventolin HFA] 1 - 2 puff INHALATION Q6H PRN 07/21/20 [History] Cholecalciferol [Vitamin D3 (25 Mcg = 1000 Iu)] 5,000 unit PO DAILY 07/21/20 [History] DULoxetine HCL [Cymbalta] 30 mg PO HS 07/21/20 [History] Echinacea 850 mg PO DAILY PRN 07/21/20 [History] Fluticasone Nasal [place] [Flonase Nasal [place]] 2 spray EA NOSTRIL DAILY PRN 07/21/20 [History] Glucos Sul 2Kcl/MSM/Chond/C/Mn [Glucosamine Chondroitin Cap] 1 each PO DAILY 07/21/20 [History] Ibuprofen [Motrin] 800 mg PO Q8H PRN 07/21/20 [History] Krill Oil 500 mg PO DAILY 07/21/20 [History] Losartan [Cozaar] 50 mg PO DAILY 07/21/20 [History] Montelukast Sodium [Singulair] 10 mg PO HS 07/21/20 [History] Naltrexone 3mg 3 mg PO DAILY 07/21/20 [History] [place]-3 Fatty Acids [[place]-3] 1,000 mg PO DAILY 07/21/20 [History] Propylene Glycol/Peg 400/Pf [Systane 0.3-0.4% Eye Drops] 1 dropper BOTH EYES BID PRN 07/21/20 [History] Sodium Chloride 5% Ophth Oint [Harry 128] 1 applic BOTH EYES DAILY PRN 07/21/20 [History] Turmeric Root Extract [Turmeric] 500 mg PO DAILY 07/21/20 [History] metFORMIN HCL [Glucophage] 500 mg PO BID 07/21/20 [History] traZODone HCL [Desyrel] 50 mg PO HS 07/21/20 [History] Acetaminophen [Tylenol Extra Strength] 1,000 mg PO DIRECTED PRN 08/19/20 [History] Cbd Tablets 15 mg PO HS PRN 08/19/20 [History] Famotidine [Pepcid] 20 mg PO BID 08/19/20 [History] Nitrofurantoin Macrocrystal [Macrodantin] 100 mg PO BID 08/19/20 [History] predniSONE 10 mg PO DAILY 08/19/20 [History] HYDROcodone/APAP 5-325MG [Jansen 5] 1 each PO Q6HR PRN #28 tab 08/25/20 [Rx] Follow up Appointment(s)/Referral(s): Ana Maria Ortiz DO [Doctor of Osteopathic Medicine] - 2 Weeks Activity/Diet/Wound Care/Special Instructions: Keep site clean. May shower with waterproof Tegaderm intact. Do not soak in a tub. After 72 hours postoperatively, patient May remove dressing and then may shower with area uncovered. Leave Steri-Strips intact and allow them to fray off on their own. May ambulate as tolerated. Avoid heavy or rigorous activity. No repetitive bending twisting or lifting. No overhead work. Discharge Disposition: HOME SELF-CARE
[2020-08-25 08:43] VITALS: BP 148/75; TEMP 99
[2020-08-25] MEDS ORDERED: predniSONE 10 MG TAB PO SCH (09:00)
[2020-08-25] MEDS ORDERED: SENNOSIDES-DOCUSATE SODIUM 1 EACH TAB PO SCH (09:00)
[2020-08-25] MEDS ORDERED: LOSARTAN 50 MG TAB PO SCH (09:00)
[2020-08-25] MEDS ORDERED: CHOLECALCIFEROL 1,000 UNIT TAB PO SCH (09:00)
[2020-08-25 11:34] LABS: Glucose,Whole Blood 110 mg/dL (75-99)
== END 2020-08-25 15:53 | disposition home or self-care (01) ==
LOC: OR 15:08 → 1SOBS 20:01 → OR 08-25 15:53
PROVIDERS: ATTEND Orthopaedic Surgery Orthopaedic Surgery of the Spine
DX: M48.02 Spinal stenosis, cervical region (principal); M50.21 Other cervical disc displacement, high cervical region; M50.01 Cervical disc disorder with myelopathy, high cervical region; M50.00 Cervical disc disorder with myelopathy, unspecified cervical region; M25.78 Osteophyte, vertebrae; M43.22 Fusion of spine, cervical region; G95.89 Other specified diseases of spinal cord; M43.12 Spondylolisthesis, cervical region; J45.909 Unspecified asthma, uncomplicated; R42 Dizziness and giddiness; F32.9 Major depressive disorder, single episode, unspecified; M79.7 Fibromyalgia; M47.10 Other spondylosis with myelopathy, site unspecified; E78.5 Hyperlipidemia, unspecified; I10 Essential (primary) hypertension; E11.9 Type 2 diabetes mellitus without complications; Z97.3 Presence of spectacles and contact lenses; Z98.890 Other specified postprocedural states; Z83.3 Family history of diabetes mellitus; Z79.84 Long term (current) use of oral hypoglycemic drugs; Z79.52 Long term (current) use of systemic steroids; Z79.1 Long term (current) use of non-steroidal anti-inflammatories (NSAID); Z79.899 Other long term (current) drug therapy; Z88.8 Allergy status to other drugs, medicaments and biological substances
CPT/HCPCS: 97161; 72020; 22551; 22552 ×2; 22845; 20931; C1713 ×2; C1762 ×2; J2250; J1100; J0690 ×3; J2405; J2001; J3010; J0330; J2704; J7512; J1170; 86850; 86900; 86901

== ENCOUNTER → 2020-12-07 | Outpatient (CLI) | payer MEDICARE, BC ==
--- NOTE | 2020-12-08 13:54 | MR ---
EXAMINATION TYPE: MR brain/cspine wo/w DATE OF EXAM: 12/07/2020 COMPARISON: Brain 08/15/2020 and cervical spine 08/06/2020 HISTORY: 65-year-old female Neck pain, headaches, BUE weakness, abnormal Brain MRI, prior cervical haskins rgery TECHNIQUE: Multiplanar, multisequence images of the brain were obtained before and after administrati on of 9.0 mL intravenous Gadavist gadolinium contrast. Diffusion-weighted imaging is performed. Pre and postcontrast multiplanar, multisequence imaging of the cervical spine were also obtained. FINDINGS: BRAIN: Normal variation hyperostosis frontalis interna. No evidence for acute infarction, hemorrhage, mass effect, midline shift, herniation, effacement of b farhad cisterns, or extra-axial fluid collection. The ventricles and sulci are age-appropriate. V4 segment right vertebral artery after the PICA takeoff is hypoplastic. Major intracranial flow void s are intact. T2/FLAIR weighted sequences show minimal right white matter change with approximately 1-2 foci on eac h side, for example, the subinsular focus on the left measuring 4 mm, unchanged. Nonspecific findings , likely trace burden of chronic small vessel ischemic disease. Midline structures demonstrate normal morphology. The craniocervical junction is normal. The 9 mm small avidly enhancing extra-axial lesion along the right anterolateral foramen magnum is re demonstrated abutting the right ventral cervicomedullary junction. Otherwise, post contrast images de monstrate no evidence of pathologic enhancement. Dural venous sinuses are patent. Leftward nasal septal deviation. Mild mucosal thickening ethmoid air cells. Globes are intact. CERVICAL SPINE: No craniocervical junction appear mildly, predental space widening, prevertebral soft tissue swelling . 9 mm meningioma at the right anterior foramen magnum as mentioned above. Interval C3-C7 ACDF. Residual levels of ligamentum flavum thickening particularly at C3-C4 which was the level of tight st enosis on 08/06/2020. Additional ligamentum flavum thickening at C6-C7 also with residual posterior o steophytic ridging at this level causing a moderate spinal canal stenosis with AP canal dimension of 7.5 mm versus 7.0 mm before surgery. There is abutment and flattening of the ventral cord at this lev el. At C3-C4, there is residual moderate narrowing of the spinal canal with abutment and flattening of th e dorsal cord and suspected chronic compressive myelomalacia in the dorsal aspect of the cord charact erized by some bright signal but no abnormal cord expansion. 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 Scattered hyperostotic changes relating to facet and uncovertebral joint arthropathy. Variable mild neuroforaminal stenoses throughout, mild to moderate on the right at C3-C4, mild-to-mod erate on the left at C4-C5, moderate on the right and C5-C6, moderate on both sides at C6-C7. No prevertebral or paravertebral soft tissue abnormality. COMBINED IMPRESSION: BRAIN: 1. Stable 9 mm extra-axial lesion/meningioma along the right anterolateral foramen magnum abutting th e right ventral aspect of the cervicomedullary junction. 2. Otherwise, no acute intracranial abnormality seen. CERVICAL SPINE: 1. Interval C3-C7 ACDF. Improvement in the previous severe spinal stenosis at C3-C4. Residual moderat e canal narrowing remains here secondary to dorsal ligamentum flavum which continues to abut and mild ly flatten the dorsal cord. There is some chronic compressive myelomalacia in the dorsal cord at this level but resolution of previous cord compression. 2. Residual moderate narrowing of the spinal canal at C6-C7 as well due to posterior osteophytic ridg ing and thickened ligamentum flavum. AP canal dimension is 7.5 mm, slightly improved from the previou s 7.0 mm. There is abutment and slight flattening of the ventral cord at this level. 3. Note underlying congenital spinal canal narrowing with [place] AP canal dimension of 1.0 cm. 4. Variable mild to moderate neuroforaminal stenoses as outlined above.
== END | disposition home or self-care (01) ==
LOC: RADMRIMAIN 14:39
PROVIDERS: ATTEND Neurological Surgery
DX: M48.02 Spinal stenosis, cervical region (principal); G95.89 Other specified diseases of spinal cord; R90.89 Other abnormal findings on diagnostic imaging of central nervous system; D32.1 Benign neoplasm of spinal meninges; Z98.1 Arthrodesis status
CPT/HCPCS: 70553; 72156; A9585

== ENCOUNTER → 2021-06-14 | Outpatient (CLI) | payer MEDICARE, BC ==
--- NOTE | 2021-06-15 03:44 | MR ---
EXAMINATION TYPE: MR cervical spine wo/w con DATE OF EXAM: 06/14/2021 COMPARISON: 12/07/2020 HISTORY: Benign neoplasm, and numbness in both arms to fingers. History of cervical surgery. CONTRAST: Standard multiplanar, multisequence MRI departmental protocol utilizing 10 mL intravenous Gadavist ga dolinium contrast. Cervical vertebra have normal alignment. There is metal artifact from multilevel anterior fusion surg kelly. This is seen from C3 to C7. There is small posterior disc herniation at C6-7. The canal is narro wed to 7 mm. The cervical spinal cord shows no edema. There is no evidence of compression fracture. B rainstem appears intact. I see no focal bone destruction. There is no evidence of cervical paraspinal mass. There is some facet arthropathy with posterior impingement on the cervical cord at the C3 leve l but no significant spinal stenosis. This appears unchanged. The contrast images show no pathologic enhancement. IMPRESSION: Multilevel fusion surgery. Posterior chronic disc herniation at C6-7 without change compared to old e xam. There is 7 mm spinal stenosis without change. No acute bony abnormality. No significant spinal c ord impingement.
== END | disposition home or self-care (01) ==
LOC: RADMRIMAIN 14:57
PROVIDERS: ATTEND Neurological Surgery
DX: M50.223 Other cervical disc displacement at C6-C7 level (principal); M48.02 Spinal stenosis, cervical region; D32.1 Benign neoplasm of spinal meninges
CPT/HCPCS: 72156; A9585

== ENCOUNTER → 2022-02-12 | Outpatient (CLI) | payer MEDICARE, BC ==
--- NOTE | 2022-02-13 05:02 | MR ---
EXAMINATION TYPE: MR cervical spine wo/w con DATE OF EXAM: 02/12/2022 COMPARISON: 06/14/2021 HISTORY: Meningeal tumor CONTRAST: Standard multiplanar, multisequence MRI departmental protocol images were obtained without contrast a nd with 7 mL intravenous gadolinium contrast. There is metal artifact from multilevel anterior fusion surgery from C3 to C7 level. Normal alignment. There is posterior mild disc herniation and disc bulging at C6-7. Cervical cord sharif ws no edema. The spinal canal is narrowed to 7.5 mm at C6-7 which is the narrowest point. The brainst em is intact. There is no compression fracture. The contrast images show no pathologic enhancement. IMPRESSION: Small posterior C6-7 cervical disc herniation. This appears not significantly different than old exam . No significant spinal stenosis.
== END | disposition home or self-care (01) ==
LOC: RADMRIMAIN 10:26
PROVIDERS: ATTEND Neurological Surgery
DX: D32.1 Benign neoplasm of spinal meninges (principal)
CPT/HCPCS: 72156; A9585

== ENCOUNTER → 2023-01-21 | Outpatient (CLI) | payer MEDICARE, BC ==
--- NOTE | 2023-01-21 21:22 | MR ---
EXAMINATION TYPE: MR cervical spine wo/w con DATE OF EXAM: 01/21/2023 INDICATION: Patient age:Female; 67 years old; Reason for study: D32.1 BENIGN NEOPLASM OF SPINAL MENINGES; Benign neoplasm of spinal meninges, verna u pper extremity pain/weakness. History of surgery. COMPARISON: 02/12/2022 TECHNIQUE: Multi planar, multi sequence imaging was performed utilizing: T1-weighted, T2-weighted, an d turbo inversion recovery imaging of the cervical spine. IV Contrast: 10 cc Gadavist FINDINGS: Alignment: The cervical vertebral bodies have preserved heights. Alignment is within normal limits gi laith patient positioning. Bones: Anterior fixation extending from C3 to C6. Bone signal is within normal limits. Bony edema not ed at the inferior endplate of C7. No abnormal postcontrast enhancement. Cord: The spinal cord is unremarkable with regards to their signal intensity and morphology. No abnor mal postcontrast enhancement. Discs: Multilevel disc desiccation is present. C2-C3: No significant disc pathology. The spinal canal is patent. No neural foraminal stenosis. C3-C4: No significant disc pathology. The spinal canal is patent. No neural foraminal stenosis. C4-C5: No significant disc pathology. The spinal canal is patent. Bilateral facet and uncovertebral joint arthropathy are present with mild bilateral neural foraminal stenosis. C5-C6: A disc osteophyte complex is present with mild spinal canal stenosis. Bilateral facet and unc overtebral joint arthropathy are present with mild bilateral neural foraminal stenosis. C6-C7: No significant disc pathology. The spinal canal is patent. No neural foraminal stenosis. C7-T1: No significant disc pathology. The spinal canal is patent. No neural foraminal stenosis. IMPRESSION: 1. No evidence for disc herniation or significant spinal canal stenosis. No abnormal postcontrast enh ancement. 2. Mild disc degeneration with associated osteoarthritic changes worse at C5-C6 with mild spinal bernie l stenosis.
== END | disposition home or self-care (01) ==
LOC: RADMRIMAIN 18:51
PROVIDERS: ATTEND Neurological Surgery
DX: D32.1 Benign neoplasm of spinal meninges (principal); M50.322 Other cervical disc degeneration at C5-C6 level; M47.812 Spondylosis without myelopathy or radiculopathy, cervical region; M48.02 Spinal stenosis, cervical region
CPT/HCPCS: 72156; A9585